=== PATIENT | male | born 1980 | race Caucasian/White ===

== ENCOUNTER 2018-03-28 18:28 | Emergency (ER) | payer SELFPAY ==
[~2018-03-28] VITALS: Ht 167.6 cm; Wt 82.0 kg
[2018-03-29] MEDS ORDERED: TRANEXAMIC ACID 1,000 MG/10 ML IV ONE (02:00)
[2018-03-29] MEDS ORDERED: SODIUM CHLORIDE 0.9% 100 ML in TRANEXAMIC ACID 10 ML IV SCH (02:30)
[2018-03-29 03:45] VITALS: BP 133/90
== END 2018-03-29 03:55 | disposition home or self-care (01) ==
LOC: ER 21:24
DX: K06.8 Other specified disorders of gingiva and edentulous alveolar ridge (principal)
CPT/HCPCS: 93005; 99283; Z7610; J7050